=== PATIENT | male | born 2000 | race Caucasian/White ===

== ENCOUNTER 2021-11-09 07:54 | Outpatient (RCR) | payer OTHER | END 2021-11-17 | disposition home or self-care (01) | LOC: WSOH | DX: S30.22XD Contusion of scrotum and testes, subsequent encounter (principal); Y99.0 Civilian activity done for income or pay ==

== ENCOUNTER → 2021-11-17 | Outpatient (CLI) | payer OTHER | LOC: COL.RAD 12:17 | DX: S30.22XD Contusion of scrotum and testes, subsequent encounter (principal) ==